=== PATIENT | male | born 1945 | race Caucasian/White ===

== ENCOUNTER 2024-04-27 13:15 | Day surgery (SDC) | payer OTHER ==
[2024-04-26 11:49] LABS: Absolute Basophils 0.1 K/uL (0-0.5); Absolute Eosinophils 0.1 K/uL (0-0.5); Absolute Lymphocytes (CBC) 1.1 K/uL (0.7-4.9); Absolute Monocytes 0.4 K/uL (0.1-1.3); Absolute Neutrophil 4.1 K/uL (1.8-8.0); Basophils % 1.1 % (0-1.3); Eosinophils % 2.5 % (0-4.4); Hematocrit 40.6 % (39.6-49.0); Hemoglobin 13.7 g/dL (13.6-17.9); Lymphocytes % 19.1 % (15.3-44.8); MCH 32.5 pg (27.0-35.0); MCHC 33.7 g/dL (32.0-36.0); MCV 96.4 fL (80-100); MPV 7.3 fL (7.6-11.3); Monocytes % 7.4 % (3.3-12.3); Neutrophils % 69.9 % (41.7-73.7); Platelets 175 thou/uL (152-406); RBC Red Blood Cell Count 4.21 M/uL (4.33-5.43); Red Cell Distribution Width 14.4 % (12.1-15.2)
[2024-04-26 11:55] LABS: PT Prothrombin Time 10.5 SECONDS (9.4-12.5); PTT, Activated Partial Thromb 35.3 SECONDS (24.3-36.9); Protime INR 0.94
[2024-04-26 12:03] LABS: Anion Gap 8.1 mEq/L (5.0-15.0); Potassium 4.1 mEq/L (3.5-5.1)
--- NOTE | 2024-04-26 12:43 | RAD REPORT ---
Procedure: Chest Single View HISTORY: Chest pain COMPARISON: 2019 FINDINGS: The lungs appear clear of acute infiltrate. No significant pleural effusion noted. The heart is normal size. IMPRESSION: No acute abnormality is displayed.
--- NOTE | 2024-04-26 17:20 | EKG ---
Test Date: 2024-04-26 Test Time: 12:56:40 Power Generation Plant Operator: JERALD MEASUREMENT RESULTS: Intervals: Rate: 73 IL: 152 QRSD: 88 QT: 404 QTc: 445 [place]: P: 73 IL: 152 QRS: 31 T: 22 INTERPRETIVE STATEMENTS: Normal sinus rhythm Normal ECG Compared to ECG 04/08/2017 08:14:11 No significant changes Electronically Signed On 04-26-24 17:19:45 ROTARY OPERATOR by Alex Stephens
[2024-04-27] MEDS ORDERED: NA CHLORIDE 0.9% 500 ML ONE (13:40)
[2024-04-27] MEDS ORDERED: LIDOCAINE 1% 20 ML MDV ONE ×2 (14:57→15:25)
[2024-04-27] MEDS ORDERED: HEPARIN 10,000 UNIT/10 ML VIAL IV ONE (14:57)
[2024-04-27] MEDS ORDERED: HEPA 1000U/500MLS 2,000 UNIT/1,000 ML BAG IV ONE (14:57)
[2024-04-27] MEDS ORDERED: MIDAZOLAM HCL 2 MG/2 ML INJ ONE (14:57)
[2024-04-27] MEDS ORDERED: VERAPAMIL HCL 10 MG/4 ML VIAL IV ONE (14:57)
[2024-04-27] MEDS ORDERED: ASPIRIN 325 MG TAB ONE (14:58)
[2024-04-27] MEDS ORDERED: TICAGRELOR 90 MG TABLET PO ONE (14:58)
[2024-04-27] MEDS ORDERED: ATROPINE SULF 1 MG/10 ML SYR IV ONE (14:58)
[2024-04-27] MEDS ORDERED: HEPARIN 5000 UNIT/ML 1 ML VIAL ONE (14:58)
[2024-04-27] MEDS ORDERED: CLOPIDOGREL 75 MG TABLET ONE (14:58)
[2024-04-27] MEDS ORDERED: FENTANYL CITR 100 MCG/2 ML ONE (14:59)
[2024-04-27] MEDS ORDERED: HYDRALAZINE HCL 20 MG/ML VIAL ONE (16:15)
[2024-04-27 17:16] VITALS: TEMP 98.5
--- NOTE | 2024-04-27 18:48 | OP ---
Date of Procedure: 04/27/2024 Surgeon: LESLIE OLIVIER Procedures Performed: 1.Selective coronary angiogram. 2.Left heart catheterization. 3.PCI of severe mid LAD stenosis, I used a 3.0 x 38 mm Synergy drug-eluting stent, overlapped proxim ally with 3.5 x 8 mm Synergy drug-eluting stent, postdilated the proximal part of the stent using 3.5 x 12 mm NC balloon. Indication: Unstable angina. Access: Right radial artery 6-Danish closed with TR band. Complications: None. Bleeding: Less than 50 mL. Anesthesia: Total sedation time was 1 hour. Description Of Procedure: After risks, benefits, and alternatives were explained, the patient agreed to procedure and signed informed consent. [facility], prepped and draped in usual sterile fashion. Then, I accessed right radial artery using [employer] atric micropuncture kit, placed a 6-Danish Slender sheath and took 5-Danish Van Meter 4.0 catheter into a ortic root, engaged the left main and then in the right coronary artery took standard views. That ca theter was pushed over the wire into the LV, measured the LVEDP. Pullback did not record any gradien t. Then I exchanged for a 6-Danish EBU3.5 guide, and engaged the left main, gave systemic heparin to assure ACT level above 250 throughout the procedure, loaded with 180 mg of Brilinta. He is already on aspirin and then I took a short Runthrough wire into the left main and then in the LAD, passing th e area of stenosis and using a 3.0 Compliant balloon and I pre-dilated the lesion very well and then I used 3.0 x 15 NC balloon to pre-dilate the lesion further and then placed a 3.0 x 38 mm Synergy rosemary g-eluting stent distally overlapped by 3.5 x 8 mm Synergy drug-eluting stent proximally and then I us ed a 3.5 x 12 mm NC balloon to post-dilate the proximal and mid segment of the stent. Excellent ramonita ographic results. Wire was pulled back. Final angiogram was satisfactory. Then, I removed the guid e and the sheath and placed TR band with good hemostasis. Findings: 1.Left main; large and normal. 2.LAD; proximal segment is normal. Diagonal branch is normal. After the diagonal 2 takeoff, there is a long 80% stenosis and then it becomes 80% to 90%, status post successful PCI as above. 3.Left circumflex; large and dominant, proximal 20%, distal 50%. 4.RCA; it is small, nondominant with proximal 50% stenosis. Conclusions: 1.Severe mid LAD stenosis, status post successful PCI as above. 2.Moderate coronary artery disease elsewhere. Recommendation: Aspirin, Brilinta, and high-dose statin. Follow up with me in the office in 1 week. SR/MODL Voice ID: [id number] Report ID: [id number]
[2024-04-27 19:28] VITALS: O2SAT 96
[2024-04-27 19:54] VITALS: BP 107/68
== END 2024-04-27 19:54 | disposition home or self-care (01) ==
LOC: CCL 13:15
PROVIDERS: ATTEND Internal Medicine
DX: I25.110 Atherosclerotic heart disease of native coronary artery with unstable angina pectoris (principal); I34.0 Nonrheumatic mitral (valve) insufficiency; I65.29 Occlusion and stenosis of unspecified carotid artery; R00.2 Palpitations; I10 Essential (primary) hypertension; Z79.899 Other long term (current) drug therapy
CPT/HCPCS: 93005; 85025; 80048; 36415; 85610; 85730; 71045; 93458; 76937; C1893; Q9967; C1725; C9600; J1644; J0360; J2003 ×2; J2250; J3010; J7040; C1874; 99152; 99153; C9601; J0461

== ENCOUNTER 2024-05-23 18:14 | Inpatient (IN) | payer OTHER ==
--- OUTSIDE RECORDS SUMMARY | 2024-05-23 18:17 | XMS REPORT | Clinical Summary ---
Author Name Unknown Organization [facility] Address [address] [place] [address] Care Team Providers Care Lens Mounter Name Role Phone Nasrin Arias MD Primary Care Provider [phone] Suraj Irizarry MD Unavailable [email or web address] Santy Mcneil MD Unavailable [phone] Ava Andres MD Unavailable [phone] Patrick Otero MD Unavailable Joel Sellers MD Unavailable [phone] Allergies No known active allergies Medications * This document contains information received from the source organization and may not represent a complete record from that organization. cranberry 500 mg cap Take 1,500 mg by mouth as needed. Active ascorbic acid (VITAMIN C) 500 mg tablet Take 1 tablet (500 mg) by mouth daily. 01/24/20 20 Active levothyroxine (SYNTHROID, LEVOTHROID) 100 mcg tablet Take 1 tablet (100 mcg) by mouth every morning. 05/29/20 20 Active metoprolol succinate (TOPROL XL) 25 mg 24 hr tablet Take 1 tablet (25 mg) by mouth every morning. 02/11/20 20 Active acetaminophen (TYLENOL) 500 mg tabletIndicati ons:Carcinoma of bladder,Recove ry following surgery Take 2 tablets (1,000 mg) by mouth every 8 (eight) hours as needed for mild pain or moderate pain. 20 tablet 11/06/2020 11:15 AM CDT 11/02/19 21 Active multivit-min/F A/lycopen/lute in (COMPLETE MEN 50 PLUS ORAL) Take 1 tablet by mouth daily. Active furosemide (Lasix) 20 mg tabletIndicati ons:Carcinoma of bladder Take 1 tablet (20 mg) by mouth daily. 90 tablet 3 04/24/20 23 Active cyanocobalamin , vitamin B-12, 1,000 mcg/mL drop Take by mouth. Active pantoprazole (PROTONIX) 40 mg EC tablet TAKE 1 TABLET BY MOUTH IN THE MORNING AND IN THE EVENING FOR 14 DAYS 03/02/20 24 Active rosuvastatin (CRESTOR) 5 mg tablet TAKE 1 TABLET BY MOUTH EVERYDAY AT BEDTIME 04/01/20 24 Active zinc gluconate 30 mg tab Take 30 mg by mouth daily. 01/14/20 20 024 Discontinued nystatin (MYCOSTATIN) 100,000 units/g cream BID to behind 02/05/20 23 024 Discontinued triamcinolone (KENALOG) ointment 0.1% Apply topically to affected area(s). 02/05/20 23 024 Discontinued methylPREDNISo lone (Medrol, Brenton,) 4 mg tabletIndicati ons:Carcinoma of bladder Take as directed (Directions on blister pack) 21 tablet 04/24/20 23 024 Discontinued Active Problems Problem Noted Date Diagnosed Date Lymphedema 09/27/2021 Pulmonary infiltrate 08/16/2021 Assessment & Plan (09/27/2021 11:57 AM CDT): Seen on 08/17/21 d/t CT chest revealing bilateral nodular GGOs worse in the bilateral lung bases in the setting of a recent respiratory viral illness. DDx infectious/inflammatory VS Grade 1 pneumonitis r/t immunotherapy drug toxicity. At that time his last dose of Nivo was on 07/05/21 D/t minimal symptomology, and stable PFTs there was low suspicion for pneumonitis or PNA. Bronchoscopy was deferred in favor of continued surveillance of symptoms Nivo restarted on 08/30 and he continues to report stable chronic SOB on exertion, no cough. There is no need for continued routine follow-up with the pulmonary team at this time. We will place patient in a pending status. We are pleased to see him on an as-needed basis. Assessment & Plan (08/17/2021 6:23 AM PAPER CLEANER): Bilateral nodular GGOs worse in the bilateral lung bases Recent respiratory viral illness He has stable chronic SOB on exertion, no cough. Infectious/inflammatory VS Grade 1 pneumonitis r/t immunotherapy drug toxicity. Nivolumab is on hold, last dose 07/05/21 Options include bronchoscopy with BAL to evaluate for opportunistic pathogens and or pneumonitis VS monitoring off therapy Will discuss with Dr. Sellers and Dr. Mcneil Stage 3a chronic kidney disease 07/05/2021 Urostomy present 10/30/2020 Overview (10/30/2020): S/p cystectomy with ileal conduit 10/30/2020 Serum creatinine raised 07/17/2020 Carcinoma of bladder 06/22/2020 Personal history of COVID-19 06/09/2020 Overview (10/30/2020): Hospitalized with COVID 19 pneumonia 01/2020 and discharged with supplemental O2 for 3 weeks, has residual shortness of breath. Benign prostatic hypertrophy with outflow obstru ction 05/15/2020 Bladder cancer Hypertension Hypothyroidism BMI 40 to 44.9 Encounters Date Type Department Care Team Description 04/22/2024 11:00 AM PAPER CLEANER [facility] [address] [place] [address], 7th [place] [address] Santy Mcneil MD Adriazola, Ana, [employer] Carcinoma of urinary bladder (Primary Dx); Hypertension; Stage 3a chronic kidney disease; Other form of angina pectoris; Other fatigue 04/22/2024 Travel 04/21/2024 1:45 PM PAPER CLEANER Ancillary Procedure CT Imaging [address] [place] [address], 7th [place] [address] Santy Mcneil MD Carcinoma of urinary bladder 04/21/2024 12:56 PM PAPER CLEANER - 04/21/2024 11:59 PM PAPER CLEANER [facility] [address] [place] [address] Santy Mcneil MD Carcinoma of urinary bladder Discharge Disposition: Home 10/23/2023 9:00 AM CDT [facility] [address] [facility], 7th [place] [address] Santy Mcneil MD Lymphedema (Primary Dx); Carcinoma of urinary bladder; Stage 3a chronic kidney disease; Other fatigue; 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 10/23/2023 Travel 10/22/2023 1:45 PM CDT Ancillary Procedure [facility] Imaging [address] [facility], 7th [place] [address] Sepideh Rosa, [employer] Carcinoma of urinary bladder 10/22/2023 12:17 PM CDT - 10/22/2023 11:59 PM CDT [facility] [address] [place] [address] Sepideh Rosa, [employer] Carcinoma of urinary bladder Discharge Disposition: Home 08/18/2023 Telephone [facility] [address] [facility], 7th [place] [address] Pricilla Pozo RN 07/29/2023 1:15 PM PAPER CLEANER [facility] [address] [facility], 9th [place] [address] Ava Andres MD Multiple actinic keratoses (Primary Dx); Other viral wart; Seborrheic keratosis; Melanocytic nevus of trunk; Hemangioma of skin and subcutaneous tissue 07/29/2023 Travel after 05/24/2023 Immunizations Name Administration Dates Next Due Influenza, injectable, quadrivalent, preservativ e free 03/10/2020 Pfizer SARS-CoV-2 Vaccination (Purple Cap) 03/07,02/07/2021 Pneumococcal Conjugate 13-Valent 03/31/2020 Surgical History Surgery Date Site/Laterality Comments INCISION AND DRAINAGE PERIRECTAL ABSCESS Perineal abscess - STAPH INFX TRANSURETHRAL RESECTION OF BLADDER TUMOR 06/09/2019 - 06/08/2020 LASER ABLATION OF PROSTATE 05/09/2020 - 06/08/2020 ID CYSTOURETHROSCOPY W/DEST &/RMVL TUMOR LARGE 06/23/2020 Genitalia/N/A Procedure: CYSTOURETHROSCOPY WITH FULGURATION AND/OR TREATMENT OF LARGE LESION(S) (>5.0 CM); Surgeon: Nasrin Arias MD; Location: [facility]; Service: UROLOGY ID PELVIC EXAMINATION W/ANESTHESIA OTHER THAN LOCAL 06/23/2020 Bladder/N/A Procedure: PELVIC EXAMINATION UNDER ANESTHESIA; Surgeon: Nasrin Arias MD; Location: [facility]; Service: UROLOGY ID CYSTOURETHROSCOPY WITH BIOPSY 09/29/2020 Genitalia/N/A Procedure: CYSTOURETHROSCOPY; Surgeon: Nasrin Arias MD; Location: [facility]; Service: UROLOGY ID PELVIC EXAMINATION W/ANESTHESIA OTHER THAN LOCAL 09/29/2020 Bladder/N/A Procedure: PELVIC EXAMINATION UNDER ANESTHESIA; Surgeon: Nasrin Arias MD; Location: [facility]; Service: UROLOGY ID UNLISTED LAPAROSCOPY PROCEDURE BLADDER 10/30/2020 Abdomen/N/A Procedure: ROBOTIC ASSISTED COMPLETE CYSTECTOMY; Surgeon: Nasrin Arias MD; Location: [facility]; Service: UROLOGY ID URETEROILEAL CONDUIT W/INTESTINE ANASTOMOSIS 10/30/2020 N/A Procedure: ROBOTIC ASSISTED URINARY DIVERSION-ILEAL CONDUIT; Surgeon: Nasrin Arias MD; Location: MAIN OR; Service: UROLOGY ID LAPS SURG BILATERAL TOTAL PELVIC LMPHADECTOMY 10/30/2020 Bilateral Procedure: ROBOTIC ASSISTED PELVIC LYMPHADENECTOMY; Surgeon: Nasrin Arias MD; Location: MAIN OR; Service: UROLOGY Medical History Medical History Date Comments Bladder cancer Hypothyroidism COVID-19 viral [facility] Dis[facility] with supplemental O2 for 3 weeks. Has residual SOB Hypertension 2016 Enlarged prostate s/p laser abla tion of the prostate Anemia due to and following chemotherapy Personal history of MRSA infection 2015 perirectal abscess BMI 40 to 44.9 Prediabetes 06/2020 Personal history of COVID-19 06/09/2020 Hos pitalized with COVID 19 pneumonia 01/2020 and discharged with supplemental O2 for 3 weeks, has residual shortness of breath. Urostomy present 10/30/2020 S/p cystectomy with ileal conduit 10/30/2020 Family History Medical History Relation Name Comments Diabetes Father Emphysema Father Stroke Maternal Grandfather Breast cancer Mother Relation Name Status Comments Father Maternal Grandfather Mother Social History Tobacco Use Types Packs/Day Years Used Date Smoking Tobacco: Former Cigarettes 1.5 20 1 967 - 04/29/1986 Smokeless Tobacco: Never Tobacco Cessation:Counseling Given: Not Answered Alcohol Use Standard Drinks/Week Comments Not Asked 0 (1 standard drink = 0.6 oz pur e alcohol) rare Sex and Gender Information Value Date Recorded Sex Assigned at Male 09/06/2020 7:15 AM CDT Legal Sex Male 12:22 PM PAPER CLEANER Gender Identity Male 09/06/2020 7:15 AM CDT Sexual Orientation Straight 09/06/2020 7: 16 AM CDT Occupation Industry Job Start Date Job 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 on file Not on file Not on file Obstetrics History Last Filed Vital Signs Vital Sign Reading Time Taken Comments Blood Pressure 149/81 04/22/2024 10:56 AM PAPER CLEANER Pulse 78 04/22/2024 10:56 AM PAPER CLEANER Temperature 36.2 C (97.2 F) 04/22/2024 10:[address] Respiratory Rate 16 04/22/2024 10:56 AM PAPER CLEANER Oxygen Saturation 98% 04/22/2024 10:56 AM PAPER CLEANER Inhaled Oxygen Concentration - - Weight 128 kg (282 lb 3 oz) 04/22/2024 10:52 AM PAPER CLEANER Height 176 cm (5' 9.29") 04/22/2024 10:52 AM PAPER CLEANER Body Mass Index 41.32 04/22/2024 10:52 AM PAPER CLEANER Plan of Treatment Upcoming Encounters Date Type Department Care Team (Late st Contact Info) Description 07/27/2024 10:45 AM PAPER CLEANER [facility] [address] [place] [address], 9th [place] [address] Ava Andres MD [address] [place] [address] [id number] [email or web address] 10/20/2024 12:30 PM CDT Appointment [facility] [address] [place] [id number] Rosa Bunn, [employer] [address] [place] [address] [email or web address] 10/20/2024 12:50 PM CDT Ancillary Procedure CT Imaging [address] [facility], 7th [place] [address] Rosa Bunn, [employer] [address] [place] [address] [email or web address] 10/21/2024 8:00 AM CDT Follow-Up [facility] [address] [place] [address], 7th [place] [address] Santy Mcneil MD [address] [place] [address] [email or web address] Maintenance Due Date Last Done Comments COVID-19 Vaccine ( season) 2024 12/05/2021, 03/07/2021, 02/07/2021 Influenza Vaccine (#1) 2024 03/10/2023, 2019 Pneumococcal Vaccine: 65+ Years Completed 2, 03/31/2020 Procedures Procedure Name Priority Date/Time Associated Diagnosis Comments CT CHEST ABDOMEN PELVIS W WO CONTRAST UROGRAM Routine 04/21/2024 4:39 PM PAPER CLEANER Carcinoma of urinary bladder POC CREATININE Routine 04/21/2024 1:53 PM PAPER CLEANER .CBC Routine 04/21/2024 1:08 PM PAPER CLEANER Carcinoma of urinary bladder FREE THYROXINE Routine 04/21/2024 1:08 PM PAPER CLEANER Carcinoma of urinary bladder THYROID STIMULATING HORMONE Routine 04/21/2024 1:08 PM PAPER CLEANER Carcinoma of urinary bladder PHOSPHORUS LEVEL Routine 04/21/2024 1:08 PM PAPER CLEANER Carcinoma of urinary bladder MAGNESIUM LEVEL Routine 04/21/2024 1:08 PM PAPER CLEANER Carcinoma of urinary bladder LACTATE DEHYDROGENASE Routine 04/21/2024 1:08 PM PAPER CLEANER Carcinoma of urinary bladder COMPREHENSIVE METABOLIC PANEL Routine 04/21/2024 1:08 PM PAPER CLEANER Carcinoma of urinary bladder COMPLETE BLOOD COUNT W/ DIFFERENTIAL Routine 04/21/2024 1:08 PM PAPER CLEANER Carcinoma of urinary bladder CT CHEST ABDOMEN PELVIS W WO CONTRAST UROGRAM Routine 10/22/2023 4:28 PM CDT Carcinoma of urinary bladder .CBC Routine 10/22/2023 12:24 PM CDT Carcinoma of urinary bladder THYROID STIMULATING HORMONE Routine 10/22/2023 12:24 PM CDT Carcinoma of urinary bladder PHOSPHORUS LEVEL Routine 10/22/2023 12:2 4 PM CDT Carcinoma of urinary bladder MAGNESIUM LEVEL Routine 10/22/2023 12:24 PM CDT Carcinoma of urinary bladder LACTATE DEHYDROGENASE Routine 10/22/2023 12:24 PM CDT Carcinoma of urinary bladder FREE THYROXINE Routine 10/22/2023 12:24 PM CDT Carcinoma of urinary bladder COMPREHENSIVE METABOLIC PANEL Routine 10/22/2023 12:24 PM CDT Carcinoma of urinary bladder COMPLETE BLOOD COUNT W/ DIFFERENTIAL Routine 10/22/2023 12:24 PM CDT Carcinoma of urinary bladder after 05/24/2023 Results * CT Chest Abdomen Pelvis with and without Contrast Urogram (04/21/2024 4:39 PM PAPER CLEANER) Only the most recent of2 resultswithin the time period is included. Anatomical Region Laterality Modality Chest, Abdomen, Pelvis Computed Tomography 04/22/2024 8:42 AM PAPER CLEANER Impressions 04/22/2024 8:55 AM PAPER CLEANER Postsurgical changes related to a cystoprostatectomy with a right lower quadrant ileal conduit. No upper tract lesions. No metastatic disease in the chest, abdomen or pelvis. ACTIONABLE ITEMS/RECOMMENDATIONS*: See impression and findings. *An Actionable Finding is a finding that may be unrelated to the original reason for imaging but potentially actionable, meaning further investigation may be necessary. The Actionable Findings Vigilance Unit (AFVU) assists medical providers with responding to additional radiologic findings that are unexpected and potentially actionable. Narrative 04/22/2024 8:55 AM PAPER CLEANER FULL RESULT: Examination: CT CHEST ABDOMEN PELVIS W WO CONTRAST UROGRAM on 04/21/2024 4:39 PM. Clinical History: Carcinoma of urinary bladder. Indication: locally advanced UC s/p chemo and IO. Comparison: CT dated 10/22/2023 and CTs dating as far back as 08/01/2021. Technique: CT CHEST ABDOMEN PELVIS W WO CONTRAST UROGRAM. Findings: CHEST: Lungs and Pleura: Stable subcentimeter pulmonary nodules/nodular densities have been marked on the images. No new suspicious pulmonary nodules. No pleural effusion. Cardiomediastinum: The heart is normal in size. No pericardial effusion. Lymph nodes: No axillary or mediastinal lymphadenopathy. Stable 1.3 cm in short axis diameter right hilar node (image 54, series 310). ABDOMEN AND PELVIS: Hepatobiliary: Stable too small to characterize hepatic hypodensities. No biliary dilatation. No cholecystitis. Spleen: No splenomegaly. Pancreas: No mass or ductal dilatation. Adrenal Glands: No mass. Kidneys, Ureters, Bladder: No hydronephrosis. Bilateral renal subcentimeter too small to characterize hypodensities. Postsurgical changes related to a cystectomy with a right lower quadrant ileal conduit. There is a parastomal hernia containing some loops of small bowel. No findings of bowel obstruction, however. Gastrointestinal Tract: No obstruction. Pelvic Organs: Postsurgical changes related to prostatectomy. Peritoneum/Retroperitoneum: No ascites. Lymph Nodes: No abdominal or retroperitoneal lymphadenopathy. Stable 1.4 cm in short axis diameter right-sided inguinal node (image 168, series 303). MUSCULOSKELETAL: No suspicious skeletal lesion. There is a large midline ventral hernia containing loops of small bowel. No findings of bowel obstruction, however. Procedure Note Samm Hoskins MD - 04/22/2024 FULL RESULT: Examination: CT CHEST ABDOMEN PELVIS W WO CONTRAST UROGRAM on 44:39 PM. Clinical History: Carcinoma of urinary bladder. Indication: locally advanced UC s/p chemo and IO. Comparison: CT dated 10/22/2023 and CTs dating as far back as08/01/2021. Technique: CT CHEST ABDOMEN PELVIS W WO CONTRAST UROGRAM. Findings: CHEST: Lungs and Pleura: Stable subcentimeter pulmonary nodules/nodular densitieshave been marked on the images. No new suspicious pulmonary nodules. Nopleural effusion. Cardiomediastinum: The heart is normal in size. No pericardial effusion. Lymph nodes: No axillary or mediastinal lymphadenopathy. Stable 1.3 cm inshort axis diameter right hilar node (image 54, series 310). ABDOMEN AND PELVIS: Hepatobiliary: Stable too small to characterize hepatic hypodensities. Nobiliary dilatation. No cholecystitis. Spleen: No splenomegaly. Pancreas: No mass or ductal dilatation. Adrenal Glands: No mass. Kidneys, Ureters, Bladder: No hydronephrosis. Bilateral renalsubcentimeter too small to characterize hypodensities. Postsurgical changes related to a cystectomy with a right lower quadrantileal conduit. There is a parastomal hernia containing some loops of smallbowel. No findings of bowel obstruction, however. Gastrointestinal Tract: No obstruction. Pelvic Organs: Postsurgical changes related to prostatectomy. Peritoneum/Retroperitoneum: No ascites. Lymph Nodes: No abdominal or retroperitoneal lymphadenopathy. Stable 1.4cm in short axis diameter right-sided inguinal node (image 168, [id number]). MUSCULOSKELETAL: No suspicious skeletal lesion. There is a large midline ventral herniacontaining loops of small bowel. No findings of bowel obstruction,however. IMPRESSION: Postsurgical changes related to a cystoprostatectomy with a right lowerquadrant ileal conduit. No upper tract lesions. No metastatic disease inthe chest, abdomen or pelvis. ACTIONABLE ITEMS/RECOMMENDATIONS*: See impression and findings. *An Actionable Finding is a finding that may be unrelated to the originalreason for imaging but potentially actionable, meaning furtherinvestigation may be necessary. The Actionable Findings Vigilance Unit(AFVU) assists medical providers with responding to additional radiologicfindings that are unexpected and potentially actionable. Santy Mcneil MD IMG CT ORDERABLES Final Result * (ABNORMAL) POC Creatinine (04/21/2024 1:53 PM PAPER CLEANER) POC Creatinine 1.5(H) 0.6 - 1.3 mg/dL 04/21/2024 1:57 PM PAPER CLEANER [facility] Comment:Medications, especia lly hydroxyurea or supplements, such as ascorbate, can interfere with test results causing a falsely and significantly higher result than expected. If a problem is suspected with a patient's result, a sample should be sent to the laboratory for confirmatory testing. POC eGFR 48(L) >=60 mL/min/1.7 3 sq. m 04/21/2024 1:57 PM PAPER CLEANER [facility] Comment: The eGFRcr is calculated with the 2020 CKD-EPI creatinine equation using creatinine, patient's age, and sex for adults 18 years of age and older. Other factors, especially muscle mass, may affect accuracy and need to be considered. According to the Kidney Disease: Improving Global Outcomes (KDIGO) CKD Work Group 2012 Clinical Practice Guideline, chronic kidney disease (CKD) is defined as the abnormalities of kidney structure or function, present for more than 3 months, with implications for health. CKD should be classified by cause, GFR category, and albuminuria category. KDIGO guidelines provide the following GFR categories. Stage / Description / GFR mL/min/1.73 m2: G1* / Normal or high / >= 90 G2* / Mildly decreased / 60-89 G3a / Mildly to moderately decreased / 45-59 G3b / Moderately to severely decreased / 30-44 G4 / Severely decreased / 15-29 G5 / Kidney failure / <15 *In the absence of evidence of kidney damage, neither G1 nor G2 fulfill criteria for CKD. Blood 04/21/2024 1:53 PM PAPER CLEANER 04/21/2024 1:57 PM PAPER CLEANER Narrative [facility] - 04/21/2024 1:57 PM PAPER CLEANER Method description: The i-STAT is an analyzer used for in vitro quantification of various analytes in whole blood. The device uses a single disposable cartridge which contains microfabricated sensors, a calibration solution, fluidics system, and a waste chamber. Each test cartridge contains chemically sensitive biosensors on a silicon chip that are configured to perform specific tests. The microfabricated sensors measure analyte concentration by an electrochemical assay. Santy Mcneil MD POCT ORDERABLES - DEVICE Final Result [facility] Unless otherwise noted, all lab tests performed by: Division of Pathology and Laboratory Medicine [address] [place] [id number] * (ABNORMAL) .CBC (04/21/2024 1:08 PM PAPER CLEANER) Only the most recent of2 resultswithin the time period is included. White Blood Cell 6.7 4.1 - 10.5 K/uL 04/21/2024 1:15 PM [facility] Red Blood Cell 4.33 4.30 - 6.04 M/uL 04/21/2024 1:15 PM [facility] Hemoglobin 13.9 13.3 - 17.4 g/dL 04/21/2024 1:15 PM [facility] Hematocrit 42.0 39.5 - 51.8 % 04/21/2024 1:15 PM [facility] Mean Cell Volume 97 82 - 99 fL 04/21/20 24 1:15 PM [facility] Mean Cell Hemoglobin 32.1 26.6 - 33.2 pg 04/21/2024 1:15 PM [facility] Mean Cell Hemoglobin Concentration 33.1 31.1 - 35.2 g/dL 04/21/2024 1:15 PM [facility] RDW-SD 49.1 37.5 - 49.7 fL 04/21/2024 1:15 PM [facility] Red Cell Diameter Width 13.7 11.6 - 15.5 % 04/21/2024 1:15 PM [facility] Platelet 165 160 - 397 K/uL 04/21/2024 1:15 PM [facility] Mean Platelet Volume 8.9(L) 9.1 - 12.6 fL 04/21/2024 1:15 PM [facility] INRBC 0.0 0.0 - 0.1 /100 WBC 04/21/2024 1:15 PM [facility] Comment: The INRBC (instrument NRBC) value reflects the enumeration of nucleated red blood cells contained in a 200uL sample of whole blood analyzed by the instrument. This value may differ from the NRBC value reported in a manual differential, which is based on a 100 cell differential. Neutrophil % 68.7 43.2 - 72.7 % 04/21/2024 1:15 PM [facility] Lymphocyte % 18.9 16.8 - 46.2 % 04/21/2024 1:15 PM [facility] Monocyte % 8.1 5.1 - 12.5 % 04/21/2024 1:15 PM [facility] Eosinophil % 2.3 0.4 - 6.3 % 04/21/2024 1:15 PM [facility] Basophil % 1.1 0.2 - 1.4 % 04/21/2024 1:15 PM [facility] IGRE % 0.9 0.1 - 1.5 % 04/21/2024 1:15 PM [facility] Comment:The IGRE% includes M etamyelocytes, Myelocytes and Promyelocytes. Neutrophil Abs 4.57 1.95 - 7.25 K/uL 04/21/2024 1:15 PM [facility] Lymphocyte Abs 1.26 1.01 - 3.24 K/uL 04/21/2024 1:15 PM [facility] Monocyte Abs 0.54 0.24 - 0.85 K/uL 04/21/2024 1:15 PM [facility] Eosinophil Abs 0.15 0.02 - 0.50 K/uL 04/21/2024 1:15 PM [facility] Basophil Abs 0.07 0.02 - 0.09 K/uL 04/21/2024 1:15 PM [facility] IG Abs 0.06 0.01 - 0.12 K/uL 04/21/2024 1:15 PM [facility] Blood Peripheral blood specimen / Unknown Venipuncture / Unknown 04/21/2024 1:08 PM [facility] 04/21/2024 1:09 PM PAPER CLEANER us Santy Mcneil MD LAB BLOOD ORDERABLES Final Resu lt [facility] [address] [place] [address] * (ABNORMAL) Comprehensive Metabolic Panel (04/21/2024 1:08 PM PAPER CLEANER) Only the most recent of2 resultswithin the time period is included. Bilirubin Total 0.4 0.0 - 1.2 mg/dL 04/21/2024 1:55 PM [facility] Comment:Indocyanine Green (I CG) may cause falsely elevated bilirubin results. Total and direct bilirubin must not be measured from samples containing indocyanine green. False elevation of total bilirubin can be seen in patients with IgG concentrations above 28 g/L. eGFR 50(L) >=60 mL/min/1. 73 sq. m 04/21/2024 1:55 PM [facility] Comment: The eGFRcr is calculated with the 2020 CKD-EPI creatinine equation using creatinine, patient's age, and sex for adults 18 years of age and older. Other factors, especially muscle mass, may affect accuracy and need to be considered. According to the Kidney Disease: Improving Global Outcomes (KDIGO) CKD Work Group 2012 Clinical Practice Guideline, chronic kidney disease (CKD) is defined as the abnormalities of kidney structure or function, present for more than 3 months, with implications for health. CKD should be classified by cause, GFR category, and albuminuria category. KDIGO guidelines provide the following GFR categories. Stage / Description / GFR mL/min/1.73 m2: G1* / Normal or high / >= 90 G2* / Mildly decreased / 60-89 G3a / Mildly to moderately decreased / 45-59 G3b / Moderately to severely decreased / 30-44 G4 / Severely decreased / 15-29 G5 / Kidney failure / <15 *In the absence of evidence of kidney damage, neither G1 nor G2 fulfill criteria for CKD. Tot Protein 7.3 6.4 - 8.3 gm/dL 04/21/2024 1:55 PM [facility] Calcium Level Total 9.2 8.2 - 10.2 mg/dL 04/21/2024 1:55 PM [facility] Alkaline Phosphatase 62 40 - 129 U/L 04/21/2024 1:55 PM [facility] Albumin Level 4.3 3.5 - 5.2 gm/dL 04/21/2024 1:55 PM [facility] AST 24 <=40 U/L 04/21/2024 1:55 PM [facility] ALT 27 <=41 U/L 04/21/2024 1:55 PM [facility] Sodium Level 141 136 - 145 mmol/L 04/21/2024 1:55 PM [facility] Potassium Level 4.4 3.4 - 4.5 mmol/L 04/21/2024 1:55 PM [facility] Chloride 105 98 - 107 mmol/L 04/21/2024 1:55 PM [facility] CO2 28 22 - 29 mmol/L 04/21/2024 1:55 PM [facility] Anion Gap 8 4 - 14 mmol/L 04/21/2024 1:55 PM [facility] Creatinine 1.46(H) 0.67 - 1.17 mg/dL 04/21/2024 1:55 PM [facility] BUN 20 6 - 23 mg/dL 04/21/2024 1:55 PM [facility] Glucose Level 117(H) 70 - 99 mg/dL 04/21/2024 1:55 PM [facility] Comment: Effective 01/03/16, the glucose reference intervals have been updated based on [place] [employer] guidelines (Standards of Medical Care in Diabetes 2016. Diabetes Care 2016; 39: S13-S22). Fasting blood glucose: Normal: 70-99 mg/dL Impaired fasting glucose (increased risk for diabetes or pre-diabetes): 100-125 mg/dL Diabetes mellitus: >/=126 mg/dL Random blood glucose: Normal: 70-199 mg/dL Note: Random glucose >100 mg/dL is associated with increased risk for diabetes. Blood Peripheral blood specimen / Unknown Venipuncture / Unknown 04/21/2024 1:08 PM [facility] [employer] 04/21/2024 1:09 PM [facility] us Santy Mcneil MD LAB BLOOD ORDERABLES Final Resu lt [facility] [address] [place] [address] * (ABNORMAL) TSH (04/21/2024 1:08 PM P[employer]ER CLE[employer]ER) Only the most recent of2 resultswithin the time period is included. Thyroid Stimulating Hormone 4.90(H) 0.27 - 4.20 mcunit/mL 04/21/2024 3:05 PM [employer] [facility] Blood Peripheral blood specimen / Unknown Venipuncture / Unknown 04/21/2024 1:08 PM [employer]ER [employer]ER 04/21/2024 1:09 PM [employer]ER Result Cristian Mcneil MD LAB BLOOD ORDERABLES Final Resu lt Performing Organization Address City/[facility]/ZIP Co de Phone Number [address] [place] [address] * Free T4 (04/21/2024 1:08 PM P[employer]) Only the most recent of2 resultswithin the time period is included. T4 (Thyroxine) Free 1.27 0.92 - 1.68 ng/dL 04/21/2024 3:05 PM [employer] [facility] Blood Peripheral blood specimen / Unknown Venipuncture / Unknown 04/21/2024 1:08 PM [employer]ER 04/21/2024 1:09 PM P[employer]ER CLEANER Result Cristian Mcneil MD LAB BLOOD ORDERABLES Final Resu lt Performing Organization Address City/[facility]/ZIP Co de Phone Number [address] [place] [address] * Phosphorus Level (04/21/2024 1:08 PM P[employer]ER CLE[employer]ER) Only the most recent of2 resultswithin the time period is included. Phosphorus Level 3.0 2.5 - 4.5 mg/dL 04/21/2024 1:55 PM [employer] [facility] Blood Peripheral blood specimen / Unknown Venipuncture / Unknown 04/21/2024 1:08 PM P[employer]ER [employer]ER 04/21/2024 1:09 PM P[employer]ER CLE[employer]ER Result Cristian Mcneil MD LAB BLOOD ORDERABLES Final Resu lt Performing Organization Address City/[facility]/ZIP Co de Phone Number [facility] [address] [place] [address] * Magnesium Level (04/21/2024 1:08 PM P[employer]ER [employer]ER) Only the most recent of2 resultswithin the time period is included. Magnesium Level 1.7 1.6 - 2.6 mg/dL 04/21/2024 1:55 PM [employer] [facility] Blood Peripheral blood specimen / Unknown Venipuncture / Unknown 04/21/2024 1:08 PM [employer]ER 04/21/2024 1:09 PM P[employer] CLE[employer]ER Santy Mcneil MD LAB BLOOD ORDERABLES Final Resu lt Performing Organization Address [facility] de Phone Number [facility] [address] [place] [address]. [address] [place] [address] * (ABNORMAL) LDH (04/21/2024 1:08 PM P[employer]ER CLE[employer]ER) Only the most recent of2 resultswithin the time period is included. LDH 239(H) 135 - 225 U/L 04/21/2024 1:55 PM [employer] [facility] Blood Peripheral blood specimen / Unknown Venipuncture / Unknown 04/21/2024 1:08 PM [employer]ER [employer]ER 04/21/2024 1:09 PM P[employer]ER CLEANER Narrative [facility] - 04/21/2024 1:55 PM P[employer]ER CLE[employer]ER Results greater than 1651 U/L may not be reliable due to matrix effect with extended dilution as it exceeds the mold loft worker's recommended limit. Caution should be exercised when interpreting such values and done in conjunction with clinical context. us Santy Mcneil MD LAB BLOOD ORDERABLES Final Resu lt Performing Organization Address [facility] Co de Phone Number [facility] [address] [place] [address]. [address] [place] [address] after 05/24/2023 Insurance MEDICARE PART A AND B GENERIC MEDICARE PART A AND B GENERIC Advance Directives Documents on File Type Date Recorded Patient Oxyacetylene Cutter Expl anation Advance Directives: Medical Power of Press Hand 10/19/2020 Medical Power of Att orney * Full Code (Latest Code Status on File) Date Activated Date Inactivated Comments 10/30/2020 4:54 PM 11/06/2020 8:27 PM * Full Code Date Activated Date Inactivated Comments 09/29/2020 5:25 PM 09/29/2020 8:41 PM * Full Code Date Activated Date Inactivated Comments 06/23/2020 7:33 PM 06/24/2020 1:06 AM Care Teams Lens Mounter Relationship Specialty Start Date End Date Nasrin Arias MD [address] [place] [phone] [email or web address] PCP - General Urology 06/07/20 Suraj Irizarry MD [address] [place] [id number] PCP - External Primary Care Provider Family Practice 06/22/[address] MD [address] [place] [phone] [email or web address] Consulting Physician Internal Medicine 10/19/20 Santy Mcneil MD [address] [place] [phone] [email or web address] Consulting Physician Genitourinary Oncology 06/29/20 Ava Andres MD [address] [place] [phone] [email or web address] Consulting Physician Dermatology 07/31/22 Patrick Otero MD [address] [place] [phone] [email or web address] Consulting Physician Radiation Oncology 09/04/20 Joel Sellers MD [address] [place] [phone] [email or web address] Consulting Physician Pulmonary Medicine 10/18/20
[2024-05-23 18:49] LABS: Absolute Eosinophils 0.2 K/uL (0-0.5); Absolute Lymphocytes (CBC) 1.1 K/uL (0.7-4.9); Absolute Monocytes 0.6 K/uL (0.1-1.3); Absolute Neutrophil 4.7 K/uL (1.8-8.0); Basophils % 0.7 % (0-1.3); Eosinophils % 2.5 % (0-4.4); Hematocrit 37.1 % (39.6-49.0); Hemoglobin 12.3 g/dL (13.6-17.9); Lymphocytes % 16.7 % (15.3-44.8); MCH 31.9 pg (27.0-35.0); MCHC 33.2 g/dL (32.0-36.0); MPV 7.5 fL (7.6-11.3); Monocytes % 8.7 % (3.3-12.3); Neutrophils % 71.4 % (41.7-73.7); Nucleated Red Blood Cells % 0.1 % (0-0); Platelets 174 thou/uL (152-406); RBC Red Blood Cell Count 3.86 M/uL (4.33-5.43); Red Cell Distribution Width 14.6 % (12.1-15.2)
[2024-05-23 19:01] LABS: Anion Gap 8.6 mEq/L (5.0-15.0); Potassium 3.6 mEq/L (3.5-5.1)
[2024-05-23 19:06] LABS: D-Dimer 0.456 FEUug/mL (0-0.500); Protime INR 0.98
--- NOTE | 2024-05-23 19:29 | ER ---
Nurse's Notes [facility] Name: Peter Romeo Age: 78 yrs Sex: Male : 1945 Arrival Date: 05/23/2024 Time: 18:14 Bed 8 Private MD: Diagnosis: Chest pain, unspecified Presentation: 05/23 18:24 Chief complaint: Patient states: CP off/on for 1 week. Had 2 stents recently. ll1 Coronavirus screen: Client denies travel out of the [place] in the last 14 days. At this time, the client does not indicate any symptoms associated with coronavirus-19. Ebola Screen: Patient denies travel to an Ebola-affected area in the 21 days before illness onset. Initial Sepsis Screen: Does the patient meet any 2 criteria? No. Patient's initial sepsis screen is negative. Does the patient have a suspected source of infection? No. Patient's initial sepsis screen is negative. Risk Assessment: Do you want to hurt yourself or someone else? Patient reports no desire to harm self or others. Onset of symptoms was May 16, 2024. 18:24 Method Of Arrival: Ambulatory [facility] 18:24 Acuity: CHING 2 ll1 Triage Assessment: 18:20 General: Appears in no apparent distress. Behavior is calm, cooperative, appropriate ll1 for age. Pain: Complains of pain in chest Pain currently is 7 out of 10 on a pain scale. Quality of pain is described as pressure. Cardiovascular: Reports chest pain. Historical: - Allergies: 18:16 No Known Allergies; ll1 - PMHx: 18:16 Hypothyroidism; ll1 18:24 Coronary atherosclerosis; Hypertensive disorder; ll1 - PSHx: 18:24 2 cardiac stents; ll1 - Immunization history:: Adult Immunizations up to date. - Infectious Disease History:: Denies. - Social history:: Smoking status: Patient denies any tobacco usage or history of. Screenin:10 [facility] ED Fall Risk Assessment (Adult) History of falling in the last 3 months, bm8 including since admission No falls in past 3 months (0 pts) Confusion or Disorientation No (0 pts) Intoxicated or Sedated No (0 pts) Impaired Gait No (0 pts) Mobility Assist Device Used No (0 pt) Altered Elimination No (0 pt) Score/Fall Risk Level 0 - 2 = Low Risk Oriented to surroundings, Maintained a safe environment, Educated pt \T\ family on fall prevention, incl call for assistance when getting out of bed, Assessed \T\ reinforced patient's understanding of fall precautions, Hourly rounding (assess needs \T\ fall precautionary measures) done, Used ambulatory aids as needed (educated on \T\ assisted with), Used gait belt as appropriate. Abuse screen: Denies threats or abuse. Nutritional screening: No deficits noted. Tuberculosis screening: No symptoms or risk factors identified. Assessment: 19:10 General: Appears in no apparent distress. comfortable, Behavior is calm, cooperative, bm8 appropriate for age. Pain: Denies pain. Neuro: No deficits noted. Level of Consciousness is awake, alert, obeys commands, Oriented to person, place, time, situation, Appropriate for age. Cardiovascular: Denies chest pain, but states that pain comes and goes in short sharp waves lasting a couple of minutes at a time. Respiratory: Airway is patent Trachea midline Respiratory effort is even, unlabored, Respiratory pattern is regular, symmetrical. GI: No signs and/or symptoms were reported involving the gastrointestinal system. : No signs and/or symptoms were reported regarding the genitourinary system. EENT: No signs and/or symptoms were reported regarding the EENT system. Derm: No signs and/or symptoms reported regarding the dermatologic system. Musculoskeletal: No signs and/or symptoms reported regarding the musculoskeletal system. 21:07 Reassessment: Patient appears in no apparent distress at this time. Patient and/or bm8 family updated on plan of care and expected duration. Pain level reassessed. Patient is alert, oriented x 3, equal unlabored respirations, skin warm/dry/pink. Patient states symptoms have improved. Pain: Denies pain. Vital Signs: 18:24 BP 156 / 71; Pulse 82; Resp 18; Temp 97.8; Pulse Ox 98% ; Weight 124.28 kg; Height 6 ll1 ft. 0 in. ; Pain 7/10; 19:10 BP 155 / 77; Pulse 84; Resp 17; Temp 97.8; Pulse Ox 99% ; Pain 0/10; bm8 21:07 BP 167 / 71; Pulse 75; Resp 19; Temp 97.8; Pulse Ox 99% ; Pain 0/10; bm8 18:24 Body Mass Index 37.16 (124.28 kg, 182.88 cm) ll1 18:24 Pain Scale: Adult ll1 19:10 Pain Scale: Adult bm8 21:07 Pain Scale: Adult bm8 [place] Coma Score: 19:10 Eye Response: spontaneous(4). Motor Response: obeys commands(6). Verbal Response: bm8 oriented(5). Total: 15. 21:07 Eye Response: spontaneous(4). Motor Response: obeys commands(6). Verbal Response: bm8 oriented(5). Total: 15. ED Course: 18:15 Patient arrived in ED. mr 18:16 Arm band placed on Patient placed in an exam room, on a stretcher. ll1 18:24 Judd Carney MD is Attending Physician. bo1 18:24 EKG done, by ED staff, reviewed by Judd Carney MD. em1 18:26 Suraj Aguilera, RN is Primary Nurse. bp 18:26 Triage completed. ll1 18:36 Initial lab(s) drawn, by id, sent to lab. Inserted saline lock: 22 gauge in right bp forearm, using aseptic technique. Blood collected. Flushed with 10 mL NS. 19:09 XRAY Chest (1 view) In Process Unspecified. EDMS 19:10 Patient has correct armband on for positive identification. Placed in gown. Bed in low bm8 position. Call light in reach. Side rails up X2. Adult w/ patient. Client placed on continuous cardiac and pulse oximetry monitoring. NIBP monitoring applied. girls tennis coach on. Pulse ox on. NIBP on. Door closed. Noise minimized. Warm blanket given. Pillow given. Verbal reassurance given. Head of bed elevated. 19:10 No provider procedures requiring assistance completed. Patient maintains SpO2 bm8 saturation greater than 95% on room air. 19:26 Judd Carney MD is Hospitalizing Provider. bo1 19:26 Hospitalizing Provider role handed off by Judd Carney MD bo1 19:26 Jet Melendez MD is Hospitalizing Provider. bo1 20:21 Primary Nurse role handed off by Suraj Aguilera, RN bm8 21:07 Mathew Treviño, RN is Primary Nurse. bm8 21:07 Provided Education on: need for admission. bm8 21:07 Patient admitted, IV remains in place. bm8 Administered Medications: No medications were administered Medication: 19:10 VIS not applicable for this client. bm8 Outcome: 19:29 Decision to Hospitalize by Provider. bo1 21:07 Admitted to Med/surg accompanied by nurse, via stretcher, room 208, with chart, bm8 21:07 Condition: stable 21:07 Instructed on the need for admit, Demonstrated understanding of instructions, follow-up care, medications, 21:15 Patient left the ED. bm8 Signatures: Dispatcher [employer] EDVT McdonoughEm hahn, Reg Reg Gabino Bishop em1 Suraj Aguilera, RN RN bp Francesca Kathleen, RN RN ll1 Judd Carney MD MD bo1 Mathew Treviño, RN RN bm8
--- NOTE | 2024-05-23 19:29 | EDPHYS ---
Physician Documentation [facility] Name: Peter Romeo Age: 78 yrs Sex: Male : 1945 Arrival Date: 05/23/2024 Time: 18:14 Bed 8 Private MD: ED Physician Judd Carney HPI: 05/23 20:01 This 78 yrs old Male presents to ER via Ambulatory with complaints of Chest Pain. bo1 20:01 The patient or guardian reports chest pain that is located primarily in the substernal bo1 area, anterior chest wall, Center. Onset: today, Intermittent since Apr 27 with occ SOB (unexplained). Associated signs and symptoms: Pertinent positives: shortness of breath, Occ sat \T\ 88%. The chest pain is described as sharp. Duration: The patient or guardian reports multiple episodes, that are intermittent, Concern by pt and family to be seen in the ER. Pt had CAD, 2 stents placed in the LAD - Apr 27 with SOB and CP symptoms. Historical: - Allergies: 18:16 No Known Allergies; ll1 - PMHx: 18:16 Hypothyroidism; ll1 18:24 Coronary atherosclerosis; Hypertensive disorder; ll1 - PSHx: 18:24 2 cardiac stents; ll1 - Immunization history:: Adult Immunizations up to date. - Infectious Disease History:: Denies. - Social history:: Smoking status: Patient denies any tobacco usage or history of. ROS: 20:03 Constitutional: Negative for fever, chills, and weight loss bo1 20:03 Constitutional: Negative for chills, fever, 20:03 Cardiovascular: Positive for chest pain, Negative for palpitations, 20:03 Respiratory: Positive for shortness of breath, Intermittent with home oximetry at 88% on occasion, 20:03 Abdomen/GI: Negative for abdominal pain, nausea and vomiting, 20:03 MS/extremity: Positive for Lymphedema to the RLE since bladder cancer - home therapies, 20:03 Skin: Negative for rash, 20:03 All other systems are negative, Exam: 20:06 Constitutional: This is a well developed, well nourished patient who is awake, alert, bo1 and in no acute distress. 20:06 Head/face: Exam is negative for acute changes, swelling, 20:06 Neck: External neck: is normal, no acute changes, 20:06 Chest/axilla: Inspection: normal, no acute changes, 20:06 Cardiovascular: Rate: normal, Rhythm: regular, Pulses: no pulse deficits are appreciated, 20:06 ECG was reviewed by the Attending Physician. 20:06 Respiratory: Exam negative for the patient does not display signs of respiratory distress, Respirations: normal, Breath sounds: are clear throughout, Respiratory rate: Normal 20:06 Abdomen/GI: Inspection: scar(s), Hernias and right urostomy bag in place and functioning - pt's hx of bladder CA, 20:06 Skin: no rash present. 20:06 Neuro: Orientation: is normal, appropriate for stated age, Mentation: is normal, appropriate for stated age, Memory: is normal, appropriate for stated age, Vital Signs: 18:24 BP 156 / 71; Pulse 82; Resp 18; Temp 97.8; Pulse Ox 98% ; Weight 124.28 kg; Height 6 ll1 ft. 0 in. ; Pain 7/10; 19:10 BP 155 / 77; Pulse 84; Resp 17; Temp 97.8; Pulse Ox 99% ; Pain 0/10; bm8 21:07 BP 167 / 71; Pulse 75; Resp 19; Temp 97.8; Pulse Ox 99% ; Pain 0/10; bm8 18:24 Body Mass Index 37.16 (124.28 kg, 182.88 cm) ll1 18:24 Pain Scale: Adult ll1 19:10 Pain Scale: Adult bm8 21:07 Pain Scale: Adult bm8 [place] Coma Score: 19:10 Eye Response: spontaneous(4). Motor Response: obeys commands(6). Verbal Response: bm8 oriented(5). Total: 15. 21:07 Eye Response: spontaneous(4). Motor Response: obeys commands(6). Verbal Response: bm8 oriented(5). Total: 15. MDM: 18:24 Medical Screening Exam initiated bo1 19:59 Differential diagnosis: coronary artery disease chest wall pain, Atypical CP with bo1 unexplained SOB since stents placed. Data reviewed: vital signs, old medical records, lab test result(s), EKG, radiologic studies, plain films. Consideration of Admission/Observation Patient was admitted/placed on observation. Management of patient was discussed with the following: Hospitalist: Dr Al DUPONT. ED course: Pt is stable with NSR on EKG w/o STEMI or elevation of enzymes. LFTs and lipase to be done as pt has concerns of other possible causes. Consult with the pt's elevated motorman - Dr Kat DUPONT in AM. 05/23 18:25 Order name: Basic Metabolic Panel; Complete Time: 19:14 bo 05/23 18:25 Order name: CBC with Diff; Complete Time: 19:14 bo 05/23 18:25 Order name: D-Dimer; Complete Time: 19:14 bo 05/23 18:25 Order name: NT PRO-BNP; Complete Time: 19:14 bo1 05/23 18:25 Order name: PT-INR; Complete Time: 19:14 bo 05/23 18:25 Order name: Troponin HS; Complete Time: 19:14 bo 05/23 19:58 Order name: Lipase bo 05/23 19:58 Order name: LFT's bo 05/23 20:13 Order name: Hemoglobin A1c EDDE 05/23 20:13 Order name: CBC with Automated Diff EDDE 05/23 20:13 Order name: CBC with Automated Diff EDMS 05/23 20:13 Order name: Comprehensive Metabolic Panel EDDE 05/23 20:13 Order name: Comprehensive Metabolic Panel EDDE 05/23 20:13 Order name: Troponin High Sensitivity EDDE 05/23 20:13 Order name: Troponin High Sensitivity EDDE 05/23 20:13 Order name: Troponin High Sensitivity EDDE 05/23 20:13 Order name: Troponin High Sensitivity EDDE 05/23 18:25 Order name: XRAY Chest (1 view); Complete Time: 19:56 bo 05/23 18:25 Order name: EKG; Complete Time: 18:26 bo 05/23 20:13 Order name: CONS Physician Consult EDDE 05/23 18:25 Order name: Cardiac monitoring; Complete Time: 18:36 bo 05/23 18:25 Order name: EKG - Nurse/Tech; Complete Time: 18:25 bo 05/23 18:25 Order name: IV Saline Lock; Complete Time: 18:36 bo 05/23 18:25 Order name: Labs collected and sent; Complete Time: 18:36 bo 05/23 18:25 Order name: O2 Per Protocol; Complete Time: 18:36 bo 05/23 18:25 Order name: O2 Sat Monitoring; Complete Time: 18:36 bo1 EC:06 Rate is 86 beats/min. Rhythm is regular. QRS [place] is Normal. NM interval is normal. QRS bo1 interval is normal. QT interval is normal. No Q waves. T waves are Normal. No ST changes noted. Clinical impression: Normal ECG and No evidence of ischemia. Interpreted by me. Reviewed by me. Administered Medications: No medications were administered Disposition Summary: 05/23/24 19:29 Hospitalization Ordered Notes: Hospitalization Status: Observation bo1 Provider: Jet Melendez Location: Telemetry/MedSurg (observation) bo1 Condition: Stable bo1 Problem: new bo1 Symptoms: are unchanged bo1 Bed/Room Type: Standard 1 Room Assignment: 208(05/23/24 20:29) ha1 Diagnosis - Chest pain, unspecified bo1 Forms: - Medication Reconciliation Form bo1 - SBAR form bo1 - Leadership Thank You Letter bo1 Signatures: Dispatcher [employer] Francesca Laureano, MINERVA RN ll1 Mary Charlton RN RN ha1 Judd Carney MD MD bo1 Mathew Treviño RN RN bm8 Corrections: (The following items were deleted from the chart) 18:26 18:25 BASIC METABOLIC PANEL+C.LAB.BRZ ordered. EDMS EDMS 18:26 18:25 CBC+H.LAB.BRZ ordered. EDMS EDMS 18:26 18:25 D-DIMER+COAG.LAB.BRZ ordered. EDMS EDMS 18:26 18:25 PROBNP+C.LAB.BRZ ordered. EDMS EDMS 18:26 18:25 PROTIME (+INR)+COAG.LAB.BRZ ordered. EDMS EDMS 18:26 18:25 Troponin High Sensitivity+C.LAB.BRZ ordered. EDMS EDMS 20:29 19:29 bo1 ha1
--- NOTE | 2024-05-23 19:29 | RAD REPORT ---
Procedure: Chest Single View HISTORY: Chest pain COMPARISON: April 2024 FINDINGS: The lungs appear clear of acute infiltrate. No significant pleural effusion noted. The heart is normal size. IMPRESSION: No acute abnormality is displayed.
--- NOTE | 2024-05-23 19:49 | P.HP ---
Certification for Inpatient Patient admitted to: Observation With expected LOS: <2 Midnights Patient will require the following post-hospital care: None Practitioner: I am a practitioner with admitting privileges, knowledge of patient current condition, hospital course, and medical plan of care. Services: Services provided to patient in accordance with Admission requirements found in Title 42 Section 412.3 of the Code of Federal Regulations Patient History Date of Service: 05/23/24 Reason for admission: Chest pain History of Present Illness: 78-year-old male with past medical history of HTN HLD CAD status post non-STEMI 1 month ago and underwent cardiac cath with findings of significant LAD stenosis which had 2 stents placed, moderate CAD everywhere S, procedure was Dr. Huddleston for wrestling. Patient developed recurrent chest pain today. Chest pain is left-sided, nonradiating, no associated with deep breathing or cough. He denies any fever or chills he denies any trauma. Present to the ED because of chest pain. On arrival in the ED EKG is unchanged with no ST segment elevation, troponin initially was negative. BMP shows creatinine elevation to 1.8 from previous 1.4. proBNP of 348. Glucose was 230. He has been admitted for atypical chest pain Allergies No Known Allergies Allergy (Verified 04/26/24 11:31) Home Medications: Docosahexanoic AC/Epa [Fish Oil 1,000 MG CAP] 1,000 mg PO DAILY 11/21/16 Levothyroxine [Synthroid] 50 mcg PO [id number] 11/21/16 Multivitamin [Multivitamins] 1 each PO DAILY 11/21/16 Valsartan [Diovan] 160 mg PO DAILY 11/21/16 Codeine/APAP [Tylenol W/Codeine #3 tab] 1 tab PO Q4HP PRN #30 tab 11/22/16 NaCl 0.9% Irr Bottle [Ns Irrigation Bottle] 1,000 ml IRR DAILY #1 btl 11/22/16 Sulfamethoxazole/Trimethoprim [Bactrim Ds Tablet] 1 each PO BID #10 tablet 11/22/16 Physical Examination - Studies Laboratory Data (last 24 hrs) 05/23/24 05/23/24 05/23/24 18:35 18:35 18:35 WBC 6.50 Hgb 12.3 L Hct 37.1 L Plt Count 174 PT 11.0 INR 0.98 Sodium 142 Potassium 3.6 BUN 23 H Creatinine 1.85 H Glucose 230 H Assessment and Plan - Advance Directives Does patient have a Living Will: Yes Does patient have a Durable POA for Healthcare: No
[2024-05-23] MEDS ORDERED: ACETAMINOPHEN 500 MG TAB PO PRN (20:04)
[2024-05-23] MEDS ORDERED: ALBUTEROL 2.5 MG/3 ML NEB SOL NEB PRN (20:04)
[2024-05-23] MEDS ORDERED: ONDANSETRON 4 MG/2 ML VIAL IV PRN (20:04)
[2024-05-23] MEDS ORDERED: MORPHINE 2 MG/ML SYR IV PRN (20:04)
--- NOTE | 2024-05-23 20:04 | P.HP ---
Certification for Inpatient Patient admitted to: Observation With expected LOS: <2 Midnights Patient will require the following post-hospital care: None Practitioner: I am a practitioner with admitting privileges, knowledge of patient current condition, hospital course, and medical plan of care. Services: Services provided to patient in accordance with Admission requirements found in Title 42 Section 412.3 of the Code of Federal Regulations Patient History Date of Service: 05/23/24 Reason for admission: Chest pain History of Present Illness: 78-year-old male with past medical history of HTN, HLD, CAD status post recent PCI with LAD lesion x 2 stent1 month ago by Dr. Stephens, moderate CAD everywhere is who presented today because of chest pain. Left-sided, nonradiating, no associated shortness of breath or dizziness. Chest pain persistent. No associated cough fever chills. On arrival in the ED vital signs stable, EKG shows unchanged, no ST segment elevation troponin was negative, BNP of 346, creatinine elevation to 1.85 up from 1.41-month ago. Glucose was 230. proBNP of 348. Allergies No Known Allergies Allergy (Verified 04/26/24 11:31) Home Medications: Docosahexanoic AC/Epa [Fish Oil 1,000 MG CAP] 1,000 mg PO DAILY 11/21/16 Levothyroxine [Synthroid] 50 mcg PO [id number] 11/21/16 Multivitamin [Multivitamins] 1 each PO DAILY 11/21/16 Valsartan [Diovan] 160 mg PO DAILY 11/21/16 Codeine/APAP [Tylenol W/Codeine #3 tab] 1 tab PO Q4HP PRN #30 tab 11/22/16 NaCl 0.9% Irr Bottle [Ns Irrigation Bottle] 1,000 ml IRR DAILY #1 btl 11/22/16 Sulfamethoxazole/Trimethoprim [Bactrim Ds Tablet] 1 each PO BID #10 tablet 11/22/16 - Past Medical/Surgical History Has patient received pneumonia vaccine in the past: No Diabetic: No -: Hypertension -: HLD -: Hypothyroidism -: CAD -: Cardiac cath 1 month ago with PCI - Social History Smoking Status: Unknown if ever smoked Smoking therapy provided: No Patient receptive to therapy: No Alcohol use: No CD- Drugs: No Caffeine use: No Place of Residence: Home Review of Systems Cardiovascular: Chest Pain Physical Examination - Physical Exam General: Alert, In no apparent distress, Oriented x3 HEENT: Atraumatic, Normocephalic, PERRLA Neck: Supple, 2+ carotid pulse no bruit, JVD not distended Respiratory: Clear to auscultation bilaterally, Normal air movement Capillary refill: <2 Seconds Gastrointestinal: Normal bowel sounds, Soft and benign, Non-distended, W/out succussion splash Musculoskeletal: No clubbing, No swelling Integumentary: No rashes, No breakdown, No significant lesion Neurological: Normal gait, Normal speech, Normal strength at 5/5 x4 extr, Cranial nerves 3-12 intact External genitalia: No edema, No lesions - Studies Laboratory Data (last 24 hrs) 05/23/24 05/23/24 05/23/24 18:35 18:35 18:35 WBC 6.50 Hgb 12.3 L Hct 37.1 L Plt Count 174 PT 11.0 INR 0.98 Sodium 142 Potassium 3.6 BUN 23 H Creatinine 1.85 H Glucose 230 H Assessment and Plan - Problems (Diagnosis) (1) Atypical chest pain Current Visit: Yes Status: Acute (2) CAD (coronary artery disease) Current Visit: Yes Status: Acute (3) HTN (hypertension) Current Visit: Yes Status: Acute - Plan Impression Atypical chest pain History of CAD Hypertension Hypothyroidism Hyperglycemiamay be due to glucose intolerance Acute kidney injury Baseline CKD 3 Plan #Admit to observation Placed on telemetry Serial set of cardiac enzyme Start aspirin and Plavix Continue statin Consult cardiology Dr. Decker in a.m. Sublingual nitro as needed #Gentle IV fluid for creatinine elevation May need/correction of serum sodium Avoid nephrotoxin #Elevated glucose level, no prior history of DM, but states recently started on ozempmic for weight loss obtain hemoglobin A1c Monitor for now #Subcutaneous Lovenox for DVT prophylaxis Full code #Dispo possible home in 24 to 48 hours Total time spent in evaluation greater than 60 minutes - Advance Directives Does patient have a Living Will: Yes Does patient have a Durable POA for Healthcare: No Physician Review: Patient Assessed, Agree with Above Assessment and Plan Time Spent Managing Pts Care (In Minutes): 65
[2024-05-23] MEDS ORDERED: HYDRALAZINE HCL 20 MG/ML VIAL IV PRN (20:09)
[2024-05-23] MEDS ORDERED: MELATONIN 5 MG TABLET PO PRN (20:09)
[2024-05-23] MEDS ORDERED: Oxycodone HCl/Acetaminophen 5/325 MG TAB PO PRN (20:09)
[2024-05-23 20:36] LABS: ALT/SGPT 36 U/L (16-61); AST/SGOT 28 U/L (15-37); Albumin/Globulin Ratio 0.9 (1.1-1.8); Alkaline Phosphatase 57 U/L (45-117); Bilirubin Total 0.3 mg/dL (0.2-1.0); Globulin 3.2 g/dL (2.3-3.5); Lipase 21 U/L (13-75); Protein, Total 6.2 g/dL (6.4-8.2)
[2024-05-23 20:37] LABS: Bilirubin Direct < 0.2 mg/dL (0-0.2); Bilirubin Indirect, Calculated 0.1 mg/dL (0.2-0.8)
[2024-05-23] MEDS: FAMOTIDINE 20 MG TAB PO SCH (21:00)
[2024-05-23] MEDS: Ringers Lactate 1,000 ML IV SCH (21:44)
[2024-05-23] MEDS: ASPIRIN EC 81 MG TAB PO ONE (21:45)
[2024-05-23 22:05] VITALS: BMI 37.8
[2024-05-23] MEDS: CLOPIDOGREL 75 MG TABLET PO ONE (22:21)
[2024-05-24] MEDS: INSULIN REGULAR (HUMAN) 100 UNIT/ML SQ SCH
[2024-05-24 04:45] LABS: Absolute Basophils 0.1 K/uL (0-0.5); Absolute Eosinophils 0.2 K/uL (0-0.5); Absolute Monocytes 0.5 K/uL (0.1-1.3); Absolute Neutrophil 4.3 K/uL (1.8-8.0); Basophils % 0.8 % (0-1.3); Eosinophils % 2.8 % (0-4.4); Hematocrit 35.2 % (39.6-49.0); Hemoglobin 12.2 g/dL (13.6-17.9); Lymphocytes % 16.8 % (15.3-44.8); MCH 32.9 pg (27.0-35.0); MCHC 34.7 g/dL (32.0-36.0); MPV 7.3 fL (7.6-11.3); Monocytes % 8.9 % (3.3-12.3); Neutrophils % 70.7 % (41.7-73.7); Nucleated RBC Absolute Count 0.1 (0-0); Nucleated Red Blood Cells % 0.8 % (0-0); Platelets 156 thou/uL (152-406); RBC Red Blood Cell Count 3.71 M/uL (4.33-5.43); Red Cell Distribution Width 14.7 % (12.1-15.2)
[2024-05-24 04:59] LABS: Anion Gap 6.3 mEq/L (5.0-15.0); Bilirubin Total 0.3 mg/dL (0.2-1.0); Globulin 3.1 g/dL (2.3-3.5); Potassium 4.3 mEq/L (3.5-5.1); Protein, Total 6.1 g/dL (6.4-8.2)
[2024-05-24] MEDS: METOPROLOL TAR 25 MG TAB PO SCH (05:36)
[2024-05-24] MEDS: ZINC SULFATE 220 MG CAP PO SCH (08:56)
[2024-05-24] MEDS: ASPIRIN EC 81 MG TAB PO SCH (08:57)
[2024-05-24] MEDS: TICAGRELOR 90 MG TABLET PO SCH (08:57)
[2024-05-24] MEDS: ENOXAPARIN 40 MG/0.4 ML SQ SCH (08:57)
[2024-05-24] MEDS ORDERED: CLOPIDOGREL 75 MG TABLET PO SCH (09:00)
[2024-05-24] MEDS: NITROGLYCERIN 0.2 MG/HR (5 MG) PATCH TD SCH (09:02)
--- NOTE | 2024-05-24 09:36 | P.PN ---
Date of Service: 05/24/24 Subjective Awake, still with chest pain at rest Reports chest pain since the PCI in April No acute distress ROS 10 point ROS as noted above, otherwise negative Physical Exam General: Alert and Oriented x3, NAD HEENT: Atraumatic, Normocephalic, PERRLA Neck: Supple, 2+ carotid pulse no bruit, JVD not distended Respiratory: Clear to auscultation bilaterally, Normal air movement, on RA Capillary refill: <2 Seconds Gastrointestinal: Normal bowel sounds, Soft and benign on palpation, nontender Musculoskeletal: No clubbing, No swelling Integumentary: No rashes, No breakdown, No significant lesion Neurological: Normal gait, Normal speech, Normal strength at 5/5 x4 extr, Cranial nerves 3-12 intact External genitalia: No edema, No lesions Vitals Reviewed Problem list Atypical chest pain R/O [place] History of CAD status post stent to LAD Hyperglycemia Acute kidney injury Hypertension Hypothyroidism Assessment and Plan Atypical chest pain R/O [place] History of CAD status post stent to LAD (Apr 2024) -Chest xray reports "No acute abnormality is displayed." -EKG negative for ST changes -Serial troponin 9/7.7/11.2 -Continuous telemetry -Aspirin, Plavix, Brilinta, statin daily -Pain control -ECHO ordered -Cardiology consulted -Lipid panel, TSH/freeT4, A1c 6.8 Hyperglycemiamay be due to glucose intolerance -Serum glucose 141 -Accu-Chek with sliding scale insulin -A1c 6.8 Acute kidney injury -Baseline CKD 3 -BUN/creatinine 23/1.5, GFR 48 -Continue IVF, improvement OVN Hypertension Hypothyroidism -Continue home medications DVT ppx lovenox Code status LOS 24 hour OBS
[2024-05-24 10:05] LABS: Thyroid Stimulating Hormone 1.71 uIU/mL (0.358-3.740)
--- NOTE | 2024-05-24 10:31 | P.CNS ---
Date of Consult: 05/24/24 Chief Complaint: Chest pain History of Present Illness: Patient with PMH of CAD s/p recent PCI of LAD presented with worsening SOB, and chest pain, sharp in nature, no radiation, no other cardiac symptoms. Allergies No Known Allergies Allergy (Verified 04/26/24 11:31) Home medications list reviewed: Yes Home Medications: Levothyroxine [Synthroid] 50 mcg PO [id number] 11/21/16 Multivitamin [Multivitamins] 1 each PO DAILY 11/21/16 NaCl 0.9% Irr Bottle [Ns Irrigation Bottle] 1,000 ml IRR DAILY #1 btl 11/22/16 Sulfamethoxazole/Trimethoprim [Bactrim Ds Tablet] 1 each PO BID #10 tablet 11/22/16 Aspirin Chewable [Aspirin Chewable*] 81 mg PO DAILY 05/24/24 Metoprolol Succinate [Toprol Xl] 25 mg PO DAILY 05/24/24 Rosuvastatin Calcium 20 mg PO DAILY 05/24/24 Ticagrelor [Brilinta] 90 mg PO BID* 05/24/24 - Past Medical/Surgical History Diabetic: No -: Hypertension -: HLD -: Hypothyroidism -: CAD -: Cardiac cath 1 month ago with PCI - Social History Alcohol use: No CD- Drugs: No Caffeine use: Yes Place of Residence: Home Review of Systems 10-point ROS is otherwise unremarkable Physical Examination Temp Pulse Resp BP Pulse Ox 97.7 F 74 12 154/90 H 98 05/24/24 08:00 05/24/24 09:02 05/24/24 08:00 05/24/24 09:02 05/24/24 08:00 General: Alert, In no apparent distress HEENT: Atraumatic, PERRLA, Mucous membr. moist/pink, EOMI, Sclerae nonicteric Neck: Supple, 2+ carotid pulse no bruit, No LAD, Without JVD or thyroid abnormality Respiratory: Clear to auscultation bilaterally, Normal air movement Cardiovascular: Regular rate/rhythm, Normal S1 S2 Gastrointestinal: Normal bowel sounds, No tenderness Musculoskeletal: No tenderness Integumentary: No rashes Neurological: Normal gait, Normal speech, Normal tone, Normal affect Lymphatics: No axilla or inguinal lymphadenopathy Laboratory Data (last 24 hrs) 05/23/24 05/23/24 05/23/24 18:35 18:35 18:35 WBC 6.50 Hgb 12.3 L Hct 37.1 L Plt Count 174 PT 11.0 INR 0.98 Sodium 142 Potassium 3.6 BUN 23 H Creatinine 1.85 H Glucose 230 H - Problems (1) CAD (coronary artery disease) Current Visit: Yes Status: Acute Plan: Patient with recent PCI LAD, cardiac enzymes are negative, most likely vasospastic angina switch Brilinta to Plavix (load with 600 mg now then continue 75 mg daily due to worsening SOB) add Imdur 30 mg daily continue ASA and Metoprolol outpatient follow up for stress test. (2) HTN (hypertension) Current Visit: Yes Status: Acute Plan: continue metoprolol add imdur
[2024-05-24] MEDS: ISOSORBIDE MONO SR 30 MG TAB PO SCH (13:31)
[2024-05-24] MEDS: CLOPIDOGREL 75 MG TABLET PO ONE ×2 (13:40→13:50)
[2024-05-24] MEDS ORDERED: GLUCAGON 1 MG/VIAL IM PRN (15:02)
[2024-05-24] MEDS ORDERED: D10W 125 ML IV PRN (15:02)
[2024-05-24] MEDS ORDERED: ALBUTEROL 2.5 MG/3 ML NEB SOL NEB PRN (15:02)
[2024-05-24] MEDS: ROSUVASTATIN 10 MG TAB PO SCH (20:08)
[2024-05-24 22:19] VITALS: O2SAT 98
--- NOTE | 2024-05-25 08:41 | P.DS ---
Admission Date: 05/24/24 Discharge Date: 05/25/24 Disposition: ROUTINE DISCHARGE Discharge Condition: GOOD Reason for Admission: Chest pain Brief History of Present Illness: Diagnosis Atypical chest pain R/O [place] History of CAD status post stent to LAD (Apr 2024) Hyperglycemia Acute kidney injury Hypertension Hypothyroidism HPI 05/23/2024 Peter Romeo is a 78-year-old male with past medical history of HTN, HLD, CAD status post recent PCI with LAD lesion x 2 stent1 month ago by Dr. Stephens, moderate CAD everywhere is who presented today because of chest pain. Left- sided, nonradiating, no associated shortness of breath or dizziness. Chest pain persistent. No associated cough fever chills. On arrival in the ED vital signs stable, EKG shows unchanged, no ST segment elevation troponin was negative, BNP of 346, creatinine elevation to 1.85 up from 1.41-month ago. Glucose was 230. proBNP of 348. Hospital Course: Peter Romeo is a pleasant 78 year old male with a past medical history significant for HTN, HLD, CAD status post recent PCI with LAD lesion x 2 stent1 month ago who was admitted to the [facility] on 05/23/2024 for atypical chest pain. Peter presented to the ED with chest pain and reports chest discomfort since his stent placement in April. He was evaluated by Dr. Horvath, medication changes with Imdur and plavix added, stopping brilinta. This morning, he reports chest pain has resolved. He was moderately hyperglycemic during this admission with an A1C of 6.8. Plan to follow up with cardiology and PCP at discharge for continued management. On 05/25/2024, Peter was seen on morning rounds and deemed medically stable for discharge. Peter was discharged with instructions to schedule follow-up appointments with PCP and Dr. Horvath.Peter was provided prescriptions for Imdur and Plavix. Physical Exam General: AAO x3, NAD HEENT: Atraumatic, Normocephalic, PERRLA Neck: Supple, 2+ carotid pulse no bruit, JVD not distended Respiratory: Clear BBS, Symmetrical chest wall movement, on RA Capillary refill: <2 Seconds Gastrointestinal: Normal active bowel sounds, Soft on palpation, nontender Musculoskeletal: No clubbing, No swelling Integumentary: No rashes, No breakdown, No significant lesion Neurological: Normal gait, Normal speech, Normal strength at 5/5 x4 extr, Cranial nerves 3-12 intact External genitalia: No edema, No lesions Vital Signs/Physical Exam: Temp Pulse Resp BP Pulse Ox 98.1 F 73 18 155/70 H 98 05/25/24 04:00 05/25/24 05:37 05/25/24 04:00 05/25/24 05:37 05/25/24 04:00 Laboratory Data at Discharge: WBC 6.10 thou/uL (4.3-10.9) 05/24/24 04:06 Hgb 12.2 g/dL (13.6-17.9) L 05/24/24 04:06 Hct 35.2 % (39.6-49.0) L 05/24/24 04:06 Plt Count 156 thou/uL (152-406) 05/24/24 04:06 PT 11.0 SECONDS (9.4-12.5) 05/23/24 18:35 INR 0.98 05/23/24 18:35 Sodium 142 mEq/L (136-145) 05/24/24 04:06 Potassium 4.3 mEq/L (3.5-5.1) D 05/24/24 04:06 BUN 23 mg/dL (7-18) H 05/24/24 04:06 Creatinine 1.50 mg/dL (0.70-1.30) H 05/24/24 04:06 Glucose 141 mg/dL (74-106) H 05/24/24 04:06 Total Bilirubin 0.3 mg/dL (0.2-1.0) 05/24/24 04:06 AST 22 U/L (15-37) 05/24/24 04:06 ALT 32 U/L (16-61) 05/24/24 04:06 Alkaline Phosphatase 51 U/L (45-117) 05/24/24 04:06 Triglycerides 83 mg/dL (<150) 05/24/24 04:06 Cholesterol 93 mg/dL (<200) 05/24/24 04:06 HDL Cholesterol 43 mg/dL (40-60) 05/24/24 04:06 Cholesterol/HDL Ratio 2.16 05/24/24 04:06 Lipase 21 U/L (13-75) 05/23/24 20:12 Home Medications: Levothyroxine [Synthroid*] 50 mcg PO [id number] 11/21/16 Multivitamin [Multivitamins] 1 each PO DAILY 11/21/16 NaCl 0.9% Irr Bottle [Ns For Irrigation Bottle*] 1,000 ml IRR DAILY #1 btl 11/22/16 Aspirin Chewable [Aspirin Chewable*] 81 mg PO DAILY 05/24/24 Clopidogrel Bisulfate [Plavix] 75 mg PO DAILY 30 Days #30 tab 05/24/24 Isosorbide Mononitrate [Isosorbide Mononitrate ER] 30 mg PO DAILY 30 Days #30 tab 05/24/24 Metoprolol Succinate [Toprol Xl*] 25 mg PO DAILY 05/24/24 Metoprolol Tartrate [Lopressor*] 25 mg PO BID 6AM 6PM tab 05/24/24 Rosuvastatin Calcium 20 mg PO DAILY 05/24/24 New Medications: Isosorbide Mononitrate [Isosorbide Mononitrate ER] 30 mg PO DAILY 30 Days #30 tab Clopidogrel Bisulfate [Plavix] 75 mg PO DAILY 30 Days #30 tab Physician Discharge Instructions: 1. Please call and schedule a follow-up appointment with your PCP in 3-5 days - Please follow-up with your PCP for medication refills/adjustments 2. Please call and schedule a follow-up appointment with Dr Horvath in 3-5 days -Follow-up for outpatient stress test -starting Imdur and plavix, stop brilinta 3. Continue heart healthy diet 4. No activity restrictions 5. Return to the ED if symptoms worsen New medications Plavix 75 mg daily Imdur 30 mg daily Stop taking Brilinta Diet: AHA Activity: Ad nikki Followup: Barbara Mckinley NP [Primary Care Provider] - 1-2 Weeks Froilan Horvath MD [ACTIVE - CAN ADMIT] - 1 Week
[2024-05-25 09:33] VITALS: BP 123/62; TEMP 98.6
--- NOTE | 2024-05-25 12:02 | EKG ---
Test Date: 2024-05-23 Test Time: 18:22:17 Tax Compliance Officer: [employer] MEASUREMENT RESULTS: Intervals: Rate: 86 GA: 130 QRSD: 90 QT: 372 QTc: 445 [place]: P: 62 GA: 130 QRS: 35 T: 36 INTERPRETIVE STATEMENTS: Normal sinus rhythm Normal ECG Compared to ECG 04/26/2024 12:56:40 No significant changes Electronically Signed On 05-25-24 12:01:25 CURING ROOM SUPERVISOR by Froilan Horvath
== END 2024-05-25 10:08 | disposition home or self-care (01) | DRG 303 ==
LOC: ER 18:14 → ERHOLD 20:04 → 2ND 21:07 → OBSVTOIN 05-24 17:21
PROVIDERS: ADMIT Internal Medicine; ATTEND Internal Medicine
DX: I25.118 Atherosclerotic heart disease of native coronary artery with other forms of angina pectoris (principal); N17.9 Acute kidney failure, unspecified; E03.9 Hypothyroidism, unspecified; I12.9 Hypertensive chronic kidney disease with stage 1 through stage 4 chronic kidney disease, or unspecified chronic kidney disease; N18.30 Chronic kidney disease, stage 3 unspecified; E78.5 Hyperlipidemia, unspecified; R73.9 Hyperglycemia, unspecified; Z95.5 Presence of coronary angioplasty implant and graft; Z79.82 Long term (current) use of aspirin; Z79.890 Hormone replacement therapy; Z79.899 Other long term (current) drug therapy
CPT/HCPCS: 36415; 71045; 80048; 80053; 80061; 80076; 82947; 83036; 83690; 83880; 84439; 84443; 84484; 85025; 85379; 85610; 93005; 99285; G0378; J1650; J2270; J7120